=== PATIENT | male | born 1975 | race Caucasian/White ===

== ENCOUNTER → 2019-02-09 12:39 | Outpatient (CLI) | payer OTHER, SELFPAY | PROVIDERS: Visit Provider Physician Assistant | DX: K25.9 Gastric ulcer, unspecified as acute or chronic, without hemorrhage or perforation (principal) ==

== ENCOUNTER → 2019-02-11 07:44 | Outpatient (CLI) | payer OTHER, SELFPAY ==
--- NOTE | 2019-02-11 | DI.RAD.S_ITS ---
PROCEDURE: FL UPPER GI W AIR INDICATIONS: GASTRIC ULCER COMPARISON: [facility], CT, CT ABDOMEN PELVIS WITH CONTRAST, 12/19/2018, 21:55. FINDINGS: KUB: Preprocedural dowel pointer film demonstrates a normal bowel gas pattern. No suspicious abdominal calcifications. Visualized solid organ contours appear normal. Bony structures appear unremarkable. Esophagus: Esophageal mucosa is normal on air-contrast views. On single-contrast views, there is normal esophageal peristalsis. No strictures, extrinsic mass effects, or diverticula. Post Karen fundoplication and the wrap appears intact. There is a small recurrent sliding-type hiatal hernia. There is reflux into a hiatal hernia. There is normal transit of a calibrated barium tablet through the esophagus. Stomach: The stomach is normally distensible, with normal rugal fold thickness. No mucosal masses or ulcers demonstrated. Pylorus and duodenal bulb appear normal in morphology. Duodenal folds are normal in thickness as well. IMPRESSION: 1. Karen fundoplication appears intact. Small recurrent sliding-type hiatal hernia with reflux. No ulcer identified. 2. Normal esophageal motility. Dictated by: Graham Olmos M.D. on 02/11/2019 at 8:52 Approved by: Graham Olmos M.D. on 02/11/2019 at 9:08
== END ==
PROVIDERS: Visit Provider Physician Assistant
DX: K25.3 Acute gastric ulcer without hemorrhage or perforation (principal); K44.9 Diaphragmatic hernia without obstruction or gangrene; K21.9 Gastro-esophageal reflux disease without esophagitis
CPT/HCPCS: 74247